=== PATIENT | male | born 1975 | race Caucasian/White ===

== ENCOUNTER 2019-08-01 14:27 | Emergency (ER) | payer OTHER, SELFPAY ==
--- NOTE | ~2019-08-01 | XR_ITS ---
EXAMINATION: XR chest 2V DATE: 08/01/2019 15:14 INDICATION: Heart palpitations for a week TECHNIQUE: PA and lateral views of the chest are obtained. COMPARISON: None available FINDINGS: The lungs are free of acute opacities. There is no pleural effusion or pneumothorax. The ca rdiomediastinal silhouette is normal. Mild anterior wedging of multiple thoracic vertebral bodies is likely physiologic. IMPRESSION: 1. No acute cardiopulmonary abnormality. Reviewed, dictated and finalized at location A. OUT WAITER/WAITRESS
--- NOTE | 2019-08-01 14:36 | ECG_ITS ---
Measurements Intervals Gate Rate: 82 P: 11 CT: 167 QRS: 25 QRSD: 104 T: 6 QT: 337 QTc: 394 Interpretive Statements SINUS RHYTHM MINIMAL Q WAVES- INF/LAT LEADS BORDERLINE T WAVE ABNORMALITY- INFERIOR LEADS BORDERLINE ECG Electronically Signed On 08-01-2019 15:12:33 EPIC ANESTHESIA ANALYST by Bang Bryant D.O.
--- NOTE | 2019-08-01 14:42 | ED.ARRPALP ---
HPI - Arrhythmia/Palpitations General Chief Complaint: Arrhythmia/Palpitations Stated Complaint: Heart palpitations Time Seen by Provider: 08/01/19 14:29 Source: patient and RN notes reviewed Mode of arrival: ambulatory Limitations: no limitations History of Present Illness HPI narrative: Pt is a 43 y/o male who presents to the ED with c/o intermittent palpitations starting 1 week ago. He notes that he has had roughly 50-60 episodes of palpitations per day for the past week, stating that each episode lasts for several seconds. Pt notes that his heart feels like it is skipping beats. He states that he has been scheduled to be placed on a Holter monitor for his symptoms. Pt reports discomfort in the lt side of his chest and SOB as of earlier today. He also reports feeling more weak and fatigued than normal while lifting earlier today. Pt states that he has had lt middle back pain ever since working out. MD complaint: skipped beats Onset (ago): week(s) (1) Duration: intermittent Associated symptoms: shortness of breath and other (discomfort in lt chest; fatigue; lt middle back pain; weakness) Related Data Home Medications Medication Instructions Recorded Confirmed esomeprazole magnesium 20 mg 20 mg PO .before meals cap 05/04/19 capsule,delayed release pravastatin 20 mg tablet 20 mg PO DAILY 05/04/19 Review of Systems Review of Systems: All systems reviewed & are unremarkable except as noted in HPI and below Constitutional: Constitutional: Reports fatigue and Reports weakness Cardiovascular: Cardiovascular: Reports palpitations and Reports other (discomfort in lt chest) Respiratory: Respiratory: Reports dyspnea Musculoskeletal: Musculoskeletal: Reports back pain (lt middle back pain) [facility] Past Medical History Medical History Congenital pes planus Hallux valgus (acquired), left foot Mixed hyperlipidemia Prediabetes Prehypertension Surgical History Surgical History No significant past surgical history Social History Social History Smoking status: Never smoker Alcohol intake: current Gender identity (if verbalized by the patient): Male Exam Narrative: Exam Narrative: APPEARANCE: No acute distress, nontoxic, resting in bed EYES: EOMI HEENT: Normocephalic, atraumatic, OMM RESPIRATORY: No respiratory distress Clear to auscultation bilaterally with no rhonchi wheezing or rales. CARDIOVASCULAR: Regular rate and rhythm without murmurs rubs or gallops. ABDOMINAL: Soft, nontender, nondistended, no rebound or guarding MUSCULOSKELETAl: Moves all extremities. No clubbing, cyanosis or edema. NEURO: Awake and alert. Following commands, speech normal, no focal deficits SKIN:: Warm, dry. No rashes lesions or abrasions PSYCHIATRIC: Normal affect/mood, Course Course Emergency Course: Patient's schedule be sent for Holter monitor in 2 days by his primary care physician Patient remained on diagnostic cardiac sonographer throughout stay in ED with no arrhythmias noted Discussed with patient results of workup and diagnosis. Discussed need for follow-up with primary care, proper use of medication, and reasons to return to the emergency department. Patient understands and agrees to current treatment plan Vital Signs Vital signs: Vital Signs Temperature 97.6 F 08/01/19 14:43 Pulse Rate 83 08/01/19 14:43 Respiratory Rate 18 08/01/19 14:43 Blood Pressure 131/84 08/01/19 14:43 Pulse Oximetry 96 08/01/19 14:43 Temperature 97.6 F 08/01/19 14:43 Pulse Rate 76 08/01/19 18:35 Respiratory Rate 16 08/01/19 18:35 Blood Pressure 146/93 H 08/01/19 18:35 Pulse Oximetry 99 08/01/19 18:35 MDM - Arrhythmia/Palpitations Lab Data Result diagrams: 08/01/19 14:53 08/01/19 14:53 Labs: Lab Results 08/01/19 08/01/19 08/01/19 Range/Units
[2019-08-01 14:43] VITALS: BP 131/84; BP 134/80; PULSE 83; PULSE 86; RESP 18; RESP 20; TEMP 36.4; O2SAT 96
[2019-08-01 15:08] LABS: Basophils Absolute Auto 0.1 K/mm3 (0.0-0.1); Basophils Percent Auto 0.6 % (0.2-1.2); Eosinophils Absolute Auto 0.2 K/mm3 (0-0.3); Eosinophils Percent Auto 2.8 % (0-4.4); Hematocrit 44.7 % (42.0-52.0); Hemoglobin 14.8 g/dL (14.0-18.0); Immature Granulocyte Absolute 0.01 K/mm3 (0.00-0.031); Immature Granulocyte Percent A 0.1 % (0-0.5); Lymphocytes Absolute Auto 2.52 K/mm3 (0.9-3.2); Lymphocytes Percent Auto 30.8 % (18.3-44.2); Mean Corpuscular HGB Conc 33.1 g/dl (32-36); Mean Corpuscular Hemoglobin 29.9 pg (26-34); Mean Corpuscular Volume 90.3 fl (80-100); Mean Platelet Volume 10.7 fl (7.4-10.4); Monocytes Absolute Auto 0.8 K/mm3 (0.1-0.6); Monocytes Percent Auto 9.8 % (2.6-8.5); Neutrophils Absolute Auto 4.6 K/mm3 (1.3-6.7); Neutrophils Percent Auto 55.9 % (45.5-73.1); Platelet Count Result 271 k/mm3 (150-375); Red Blood Count 4.95 M/mm3 (4.6-6.20); Red Cell Distribution Width 12.5 % (11.5-14.5); White Blood Count 8.2 K/mm3 (4.5-10.0)
[2019-08-01 15:15] LABS: Alanine Aminotransferase 38 U/L (4-50); Albumin Level 4.8 g/dL (3.5-5.1); Alkaline Phosphatase 69 U/L (38-126); Aspartate Amino Transferase 39 U/L (17-59); Bilirubin,Total 0.4 mg/dL (0.2-1.3); Blood Urea Nitrogen 22 mg/dL (9-20); Calcium 9.6 mg/dL (8.4-10.2); Carbon Dioxide 26 mmol/L (22-30); Chloride 101 mmol/L (98-107); Estimated CRCL calculation 81 ml/min; Estimated Glomerular Filt Rate > 60; Glucose 103 mg/dL (75-110); Magnesium 2.1 mg/dL (1.6-2.3); Potassium 3.9 mmol/L (3.4-5.0); Sodium 140 mmol/L (137-145)
[2019-08-01 15:26] LABS: Troponin I < 0.012 ng/mL (0.000-0.034)
[2019-08-01 16:38] VITALS: PULSE 86
[2019-08-01 18:04] LABS: Troponin I < 0.012 ng/mL (0.000-0.034)
[2019-08-01 18:35] VITALS: BP 146/93; PULSE 76; RESP 16; O2SAT 99
== END 2019-08-01 18:37 | disposition home or self-care (01) ==
PROVIDERS: Emergency Provider Emergency Medicine; PCP Family Medicine
DX: E78.2 Mixed hyperlipidemia (principal); R94.31 Abnormal electrocardiogram [ECG] [EKG]
CPT/HCPCS: 36415; 71046; 80053; 83735; 84443; 84484; 85025; 93005; 99284

== ENCOUNTER 2019-08-03 08:14 | Outpatient (CLI) | payer OTHER, SELFPAY ==
--- NOTE | 2019-08-09 12:28 | WPDHOLTEREM ---
Holter/Event Monitor Holter/Event Monitor Date of procedure: 08/03/19 Procedure Type: 24 hour holter monitor Indications: Palpitations Conclusion: 1. 24 hour holter monitor on 08/03/19. 2. Underlying rhythm is sinus rhythm. HR range 55-114 bpm; average HR 75 bpm. 3. There are 7 premature supraventricular complexes and 1 supraventricular triplet. No supraventricular tachycardia. 4. There are 334 premature ventricular complexes. No ventricular tachycardia. 5. No sinoatrial or atrioventricular blocks. No significant pauses greater than 2 seconds. 6. Patient reports symptoms of beating fast which demonstrate sinus rhythm, HR range 71-80 and one PVC.
== END 2019-08-03 08:15 | disposition home or self-care (01) ==
PROVIDERS: PCP Family Medicine; Visit Provider Physician Assistant
DX: I49.3 Ventricular premature depolarization (principal); R00.2 Palpitations
CPT/HCPCS: 93225; 93226

== ENCOUNTER → 2020-01-01 10:23 | Outpatient (CLI) | payer OTHER, SELFPAY ==
--- NOTE | ~2020-01-01 | XR_ITS ---
XR chest 2V DATE: 01/01/2020 10:52 INDICATION: Shortness of breath TECHNIQUE: PA and lateral views COMPARISON: None FINDINGS: Normal heart size. No hilar or mediastinal enlargement. No pulmonary infiltrate or consol idation, pulmonary vascular congestion or pleural effusion. IMPRESSION: No active cardiopulmonary disease Reviewed, dictated and finalized at location A.
== END ==
PROVIDERS: Visit Provider Family Medicine
DX: R06.02 Shortness of breath (principal)
CPT/HCPCS: 71046

== ENCOUNTER → 2020-12-28 00:32 | Outpatient (CLI) | payer OTHER, SELFPAY ==
[2020-12-28 21:19] LABS: SARS-CoV-2 RNA PCR Negative
== END ==
PROVIDERS: PCP Family Medicine; Visit Provider Internal Medicine Gastroenterology
DX: Z01.812 Encounter for preprocedural laboratory examination (principal); Z20.822 Contact with and (suspected) exposure to COVID-19
CPT/HCPCS: 88305; C9803; J2001; J2704; J7120; U0003; U0005

== ENCOUNTER 2020-12-31 02:33 | Day surgery (SDC) | payer OTHER, SELFPAY ==
[2020-12-16 12:35] VITALS: BMI 34.0
--- NOTE | 2020-12-30 14:27 | WPDANESEPPF ---
Anes - Initial Pre Proc Eval Procedure: Operation Date: 12/31/20 07:30 Proposed Procedures p Esophagogastroduodenoscopy - Terell Horton MD Date/Time: 12/30/20 14:27 Surgeon: Terell Horton MD Pre Op Diagnosis: GERD Patient Data Age: 45 Gender: M Height: 1.75 m Weight: 104.6 kg Allergies Allergy/AdvReac Type Severity Reaction Status Date / Time No Known Allergies Allergy Verified 12/31/20 06:23 Home Medications Medication Instructions Recorded Confirmed Type pravastatin 20 mg tablet 20 mg PO DAILY #30 tablet 07/15/20 12/16/20 Rx omeprazole 20 mg PO BID 12/16/20 12/16/20 History Patient hx anesthesia problems: none Family hx anesthesia problems: none [facility] Past Medical History Medical History (Updated 12/30/20 @ 14:27 by Adebayo Nicholas DO) Colon cancer screening Congenital pes planus GERD (gastroesophageal reflux disease) Hallux valgus (acquired), left foot Mixed hyperlipidemia Prediabetes Prehypertension Surgical History Surgical History No significant past surgical history Family History Family History Father Family history of hypercholesterolemia Hypertension Mother Family history of hypercholesterolemia Asthma Social History Social History (Updated 10/17/20 @ 09:44 by Teri Milner CMA) Smoking status: Never smoker Alcohol intake: current Alcohol use details: 5 MONTHLY Substance use: never Substance use type: does not use Living arrangements: with family Gender identity (if verbalized by the patient): Male Spiritual care concerns: No Anes - Eval Final PreProcedure Day of Procedure 12/30/20 14:27 Patient weight: obese Heart: regular rate and rhythm Lungs: clear to auscultation and normal air movement Airway: Mallampati scale class II Neurological: alert and oriented Last oral intake: >/= 8 hours ASA classification: II Emergent: no Anesthetic plan: proceed Anesthesia type and monitoring: general GIVS and standard monitoring Informed Consent: The patient's anesthetic plan and its attendant risks and benefits were discussed with the patient/family/POA. Questions were solicited and answers provided to the satisfaction of the patient/family/POA.
[2020-12-31 06:24] VITALS: BP 140/82; PULSE 78; RESP 20; TEMP 35.6; O2SAT 99
[2020-12-31] MEDS: LACTATED RINGERS 1,000 ML 150 ML IV CONT (06:27)
--- NOTE | 2020-12-31 07:31 | PM.HPGS ---
History of Present Illness History of Present Illness Consent: Risks, benefits, and alternatives have been discussed and questions answered. Patient agrees to proceed with procedure. Chief complaint: GERD Narrative: Blaise Ayoub is a 45 year old male with gerd on ppi but never had egd Review of Systems Constitutional: Constitutional: Denies headache(s) and Denies weakness Eyes: Eyes: Denies blurry vision ENT: Reports Normal hearing present, Denies headache(s) and Denies neck pain Cardiovascular: Cardiovascular: Denies chest pain and Denies dyspnea Respiratory: Respiratory: Denies dyspnea Gastrointestinal: Gastrointestinal: Reports no additional gastrointestinal complaints Genitourinary: Genitourinary: Denies dysuria Musculoskeletal: Musculoskeletal: Denies neck pain Integumentary/Breasts: Skin/Breast: Denies dry skin Neurologic: Reports Normal hearing present, Denies headache(s) and Denies weakness Psychiatric: Psychiatric: Denies anxiety Endocrine: Endocrine: Denies change in body appearance Hematologic/Lymphatic: Hematologic/Lymphatic: Denies easy bleeding Allergic/Immunologic: Allergic/Immunologic: Denies urticaria PMFSH Past Medical History Medical History (Updated 12/30/20 @ 14:27 by Adebayo Nicholas DO) Colon cancer screening Congenital pes planus GERD (gastroesophageal reflux disease) Hallux valgus (acquired), left foot Mixed hyperlipidemia Prediabetes Prehypertension Surgical History Surgical History No significant past surgical history Family History Family History Father Family history of hypercholesterolemia Hypertension Mother Family history of hypercholesterolemia Asthma Social History Social History (Updated 10/17/20 @ 09:44 by Teri Milner CMA) Smoking status: Never smoker Alcohol intake: current Alcohol use details: 5 MONTHLY Substance use: never Substance use type: does not use Living arrangements: with family Gender identity (if verbalized by the patient): Male Spiritual care concerns: No Meds Home Medications and Allergies Home Medications Medication Instructions Recorded Confirmed Type pravastatin 20 mg tablet 20 mg PO DAILY #30 tablet 07/15/20 12/16/20 Rx omeprazole 20 mg PO BID 12/16/20 12/16/20 History Allergies Allergy/AdvReac Type Severity Reaction Status Date / Time No Known Allergies Allergy Verified 12/31/20 06:23 Vital Signs Vital Signs - 24 hr 12/31/20 06:24 Temperature 96.1 F L Pulse Rate 78 Respiratory Rate 20 Blood Pressure 140/82 Pulse Oximetry 99 Exam Const: General: comfortable and no acute distress HENMT: General nose exam: Normal nares present Eyes: General: appearance normal, both eyes and all related structures Neck: Neck: no JVD Resp: Auscultation: clear to auscultation bilaterally Cardio: Rate: regular rate Rhythm: regular rhythm GI: Inspection: non-distended GI Palp: Yes Soft to palpation Skin: General skin exam: normal color Neuro: General: gait normal Speech: normal speech Extrem: General: normal to inspection Psych: Mental Status: mental status grossly normal Assessment and Plan Assessment and plan (1) GERD (gastroesophageal reflux disease): Code(s): K21.9 - Gastro-esophageal reflux disease without esophagitis Status: Acute Assessment and Plan: egd with bx, already on ppi
[2020-12-31] MEDS: BENZOCAINE (*SP) 60 ML SPRAY CAN (HURRICAINE) 1 SPRAY MUCOUS MEM (07:35)
[2020-12-31 07:49] VITALS: BP 97/50; PULSE 87; RESP 17; O2SAT 92
[2020-12-31 07:59] VITALS: BP 107/58; PULSE 80; RESP 15; O2SAT 98
[2020-12-31 08:09] VITALS: BP 105/65; PULSE 77; RESP 17; O2SAT 97
== END 2020-12-31 08:26 | disposition home or self-care (01) ==
PROVIDERS: PCP Family Medicine; Visit Provider Internal Medicine Gastroenterology
PROC: 0DJ08ZZ Inspection of Upper Intestinal Tract, Via Natural or Artificial Opening Endoscopic (ICD-10-PCS; CPT 43235; principal; 2020-12-31 07:30)
DX: K21.9 Gastro-esophageal reflux disease without esophagitis (principal); K44.9 Diaphragmatic hernia without obstruction or gangrene; E78.2 Mixed hyperlipidemia; R73.03 Prediabetes; E66.9 Obesity, unspecified; Z68.35 Body mass index [BMI] 35.0-35.9, adult
CPT/HCPCS: 43239; 88305; C9803; J2001; J2704; J7120; U0003; U0005

== ENCOUNTER 2021-02-11 09:25 | Emergency (ER) | payer OTHER, SELFPAY ==
--- NOTE | ~2021-02-11 | XR_ITS ---
EXAMINATION: XR ankle LT min 3V DATE: 02/11/2021 09:48 INDICATION: Left ankle pain and swelling. TECHNIQUE: 4 views of left ankle were obtained. COMPARISON: None. FINDINGS: Bone alignment is normal. No fracture. There is heterotopic ossification distal to medial m alleolus, likely from old injury. Joint spaces are normal. There are enthesophytes at the posterior a nd plantar aspects of calcaneal tuberosity. Ankle soft tissue swelling is noted. IMPRESSION: 1. No acute fracture. Reviewed, dictated and finalized at location A. IMPRESSION: 1. No acute fracture.
--- NOTE | 2021-02-11 09:28 | ED.LOWEXIN ---
HPI - Extremity Injury (Lower) General Chief Complaint: Extremity Injury, Lower Stated Complaint: left ankle pain Time Seen by Provider: 02/11/21 09:28 Source: patient and RN notes reviewed History of Present Illness HPI Narrative: Patient is a 45-year-old male who presents the urgent care with complaints of left ankle pain. Patient states that started yesterday and he did his normal activity, including walking his dogs for 3 miles. Patient states that it was very painful last night even just for the sheet to catch the ankle. Patient denies of any known trauma or injury. States that he has been taking ibuprofen for the pain. Notes an increase of pain this morning. Patient denies of any history of gout but states his father started having gout flares in his 40s. Denies of any recent change in his diet with the exception of some increase in alcohol intake. No other acute complaints. No acute distress noted. Patient under the plan of care. Some parts of this dictation were generated by voice recognition software and may contain typographical and/or grammatical inaccuracies. Related Data Home Medications Medication Instructions Recorded Confirmed omeprazole 20 mg PO BID 12/16/20 02/11/21 Allergies Allergy/AdvReac Type Severity Reaction Status Date / Time No Known Allergies Allergy Verified 02/11/21 09:41 Review of Systems Review of Systems: CONSTITUTIONAL: Denies fever, chills, or sweats. EYES: Denies visual changes, redness, or discharge. ENT: Denies rhinorrhea, congestion, sore throat, or otalgia. CARDIOVASCULAR: Denies chest pain, palpitations, or edema. RESPIRATORY: Denies cough or dyspnea. GASTROINTESTINAL: Denies abdominal pain, nausea, vomiting, or diarrhea. GENITOURINARY: Denies dysuria or hematuria. SKIN: Denies rash or itching. MUSCULOSKELETAL: Reports of left ankle pain and tenderness NEUROLOGIC: Denies headache, numbness, or weakness. All other systems reviewed are negative, except as documented in HPI. [facility] Past Medical History Medical History Colon cancer screening Congenital pes planus GERD (gastroesophageal reflux disease) Hallux valgus (acquired), left foot Mixed hyperlipidemia Prediabetes Prehypertension Surgical History Surgical History No significant past surgical history Family History Family History Father Family history of hypercholesterolemia Hypertension Mother Family history of hypercholesterolemia Asthma Social History Social History Alcohol intake: current Alcohol use details: 5 MONTHLY Substance use: never Substance use type: does not use Gender identity (if verbalized by the patient): Male Spiritual care concerns: No Comments At the time of my signature, I reviewed and agree with the nursing past medical, surgical, social, and family history. There is no relevant family history pertinent to the patient complaint. Exam Narrative: GENERAL: This is a well-nourished, well-developed patient, in no apparent distress. HEAD: normocephalic, atraumatic. EYES: PERRL. Sclera clear/white. Vision is grossly intact. EARS: External ears normal NOSE: External nose normal with no obvious nasal discharge, nares without redness, no rhinorrhea. THROAT: Mucous membranes moist NECK: Neck supple CARDIOVASCULAR: Regular rate and rhythm without murmurs, gallops, or rubs. RESPIRATORY: Clear to auscultation. Breath sounds equal bilaterally. No wheezes, rales, or rhonchi. SKIN: warm, intact with no suspicious lesions or rash, good texture and turgor. NEURO: awake, alert, and oriented to person, place and time. There were no obvious focal neurologic abnormalities. EXTREMITIES: Mild to moderate edema and erythema noted to the lateral left malleolus with moderate anteri
[2021-02-11 09:31] VITALS: BP 125/82; PULSE 70; RESP 20; TEMP 36.7; O2SAT 99
== END 2021-02-11 10:20 | disposition home or self-care (01) ==
PROVIDERS: Emergency Provider Nurse Practitioner Family; PCP Family Medicine
DX: M10.9 Gout, unspecified (principal); K21.9 Gastro-esophageal reflux disease without esophagitis; E78.5 Hyperlipidemia, unspecified; R73.03 Prediabetes; R03.0 Elevated blood-pressure reading, without diagnosis of hypertension
CPT/HCPCS: 73610; 99213; G0463

== ENCOUNTER 2021-07-05 11:17 | Emergency (ER) | payer OTHER, SELFPAY ==
[2021-07-05 11:24] VITALS: BP 144/84; PULSE 74; RESP 16; TEMP 36.2; O2SAT 99
--- NOTE | 2021-07-05 11:42 | ED.GENADULT ---
HPI - General Adult General Chief complaint: Upper Respiratory Infection Stated complaint: headache/earache/neck pain/lymph node pain Source: patient Mode of arrival: ambulatory Limitations: no limitations History of Present Illness HPI narrative: Patient presents for evaluation of sinus symptoms. He reports right frontal sinus pressure with right retro-orbital pressure for the past two weeks. He has noted a popping sensation in the right ear and also some right cervical lymphadenopathy. He has also experienced photophobia and phonophobia. He has had sinusitis in the past and this feels similar. No fever, chills, nausea, vomiting, sore throat or respiratory symptoms. He does not have a history of headaches. He states the pressure he is experiencing occurs multiple times per day, frequently to count, lasting 15 seconds in duration. No recent sick contacts. He does not smoke. No additional complaints or concerns. Related Data Allergies Allergy/AdvReac Type Severity Reaction Status Date / Time No Known Allergies Allergy Verified 05/20/21 10:09 Review of Systems Review of Systems: CONSTITUTIONAL: Denies fever, chills, or sweats. EYES: Reports right retro-orbital pressure with associated photophobia. Denies visual changes, redness, or discharge. ENT: Reports right frontal sinus pressure. Reports right cervical lymphadenopathy. Denies rhinorrhea, congestion, sore throat, or otalgia. CARDIOVASCULAR: Denies chest pain, palpitations, or edema. RESPIRATORY: Denies cough or dyspnea. GASTROINTESTINAL: Denies abdominal pain, nausea, vomiting, or diarrhea. GENITOURINARY: Denies dysuria or hematuria. SKIN: Denies rash or itching. MUSCULOSKELETAL: Denies back pain, joint pain, or myalgia. NEUROLOGIC: Reports headache. Denies numbness, dizziness, or weakness. PSYCHIATRIC: Denies anxiety or depression. [facility] Past Medical History Medical History Colon cancer screening Congenital pes planus GERD (gastroesophageal reflux disease) Hallux valgus (acquired), left foot Mixed hyperlipidemia Prediabetes Prehypertension Surgical History Surgical History No significant past surgical history Family History Family History Father Family history of hypercholesterolemia Hypertension Mother Family history of hypercholesterolemia Asthma Social History Social History Alcohol intake: current Alcohol use details: 5 MONTHLY Substance use: never Substance use type: does not use Gender identity (if verbalized by the patient): Male Spiritual care concerns: No Exam Narrative: GENERAL: Well-appearing, well-nourished, and in no acute distress. HEAD: Normocephalic, atraumatic. EYES: PERRLA and EOMI. ENT: Nares clear, no rhinorrhea or epistaxis. Mucous membranes moist. Oropharynx without tonsillar hypertrophy exudate or other lesions. Bilateral TMs pearly lerma nonbulging NECK: Supple. No adenopathy or masses. No carotid bruits or JVD CHEST: Clear to auscultation. No respiratory distress. No wheezes rales or rhonchi HEART: Regular rate and rhythm. No murmur heard. Normal peripheral pulses. ABDOMEN: Soft, nontender, nondistended, normal active bowel sounds. EXTREMITIES: Normal range of motion. No edema. SKIN: Warm, dry, no rash. NEURO: No focal deficits. Alert and oriented x3. PSYCH: Normal mood and affect. Course Course Emergency Course: This is a 45-year-old male who presented complaints of right frontal sinus pressure, popping in the right ear, and right cervical lymphadenopathy. He has a history of sinusitis and states his current symptoms are similar to that. He does not have a history of headache so advised to go to the ER for CT scan which he declined. He would like to be treated f
== END 2021-07-05 11:55 | disposition home or self-care (01) ==
PROVIDERS: Emergency Provider Nurse Practitioner; PCP Family Medicine
DX: J00 Acute nasopharyngitis [common cold] (principal); J01.90 Acute sinusitis, unspecified; K21.9 Gastro-esophageal reflux disease without esophagitis; E78.2 Mixed hyperlipidemia; R73.03 Prediabetes; R03.0 Elevated blood-pressure reading, without diagnosis of hypertension; Q66.89 Other specified congenital deformities of feet
CPT/HCPCS: 99213; G0463

== ENCOUNTER 2021-07-20 09:58 | Emergency (ER) | payer OTHER, SELFPAY ==
[2021-07-20 10:02] VITALS: BP 135/70; PULSE 77; RESP 20; TEMP 36.4; O2SAT 98
--- NOTE | 2021-07-20 10:06 | ED.SKABFB ---
HPI - Skin/Abscess/Foreign Bdy General Chief complaint: Skin/Abscess/Foreign Body Stated complaint: Skin Problem Time Seen by Provider: 07/20/21 10:12 Source: patient and RN notes reviewed Mode of arrival: ambulatory Limitations: no limitations History of Present Illness HPI narrative: 45 female presents concern for sloughing of the skin to the third digit of the right hand, reports the digit is itchy as well. Reports the second and fourth digits are also itchy but without sloughing. He denies any injury, trauma, exposure to chemicals, change in personal care products. He reports he took antibiotics in the middle of June for a sinus infection. He denies any other rash, itching, MD complaint: rash Related Data Allergies Allergy/AdvReac Type Severity Reaction Status Date / Time No Known Allergies Allergy Verified 07/20/21 10:11 Review of Systems Review of Systems: CONSTITUTIONAL: Denies malaise, chills, sweats, or fever. EYES: Denies redness, or discharge. ENT: Denies rhinorrhea, congestion, swollen lips, swollen tongue CARDIOVASCULAR: Denies chest pain, palpitations, or edema. RESPIRATORY: Denies cough or dyspnea. GASTROINTESTINAL: Denies abdominal pain, nausea, vomiting SKIN: Reports itching skin on digits 2 3 and 4 of the right hand, skin sloughing on the third digit MUSCULOSKELETAL: Denies joint pain or myalgia. NEUROLOGIC: Denies headache. All systems reviewed & are unremarkable except as noted in HPI and below PMFSH Past Medical History Medical History Colon cancer screening Congenital pes planus GERD (gastroesophageal reflux disease) Hallux valgus (acquired), left foot Mixed hyperlipidemia Prediabetes Prehypertension Surgical History Surgical History No significant past surgical history Family History Family History Father Family history of hypercholesterolemia Hypertension Mother Family history of hypercholesterolemia Asthma Social History Social History Alcohol intake: current Alcohol use details: 5 MONTHLY Substance use: never Substance use type: does not use Gender identity (if verbalized by the patient): Male Spiritual care concerns: No Comments At time of signature, agree with nursing past medical, surgical, social and family history. There is no relevant family history pertinent to the presenting complaint Exam Narrative: GENERAL: Well-appearing, well-nourished, and in no acute distress. HEAD: Normocephalic, atraumatic. EYES: PERRLA, conjunctivae clear, and EOMI. ENT: Mucous membranes moist. Oropharynx without edema, erythema or lesions. NECK: Supple. No lymphadenopathy CHEST: Clear to auscultation. No respiratory distress. HEART: Regular rate and rhythm. SKIN: Warm, dry. Skin sloughing noted to the third digit of the right hand, [place] lamp exam indicates possible tinea infection NEURO: Alert and oriented x3. PSYCH: Normal mood and affect Course Course Emergency Course: Patient is aware of diagnosis, understands and agrees to treatment plan. Anticipatory guidance given. Patient agrees to follow-up as directed and is aware of reasons to seek care at the emergency department. Portions of this record may have been created with voice recognition software Level of Care: Express Care Visit Vital Signs Vital signs: Reviewed. MDM - Skin/Abscess/Foreign Bdy MDM Narrative Medical decision making narrative: Does not appear at this time to be erythema multiforme, bullous, SJS, TEN; no evidence at this time to suggest RMSF, endocarditis or Lyme disease; patient looks well, nontoxic and is tolerating oral intake; no neurologic signs or symptoms; no headache, photophobia or neck pain; afebrile; appropriate for initial outpatient treatment; d
[2021-07-20 10:12] VITALS: BP 135/70; PULSE 77; RESP 20; TEMP 36.4; O2SAT 98
== END 2021-07-20 10:25 | disposition home or self-care (01) ==
PROVIDERS: Emergency Provider Nurse Practitioner; PCP Family Medicine
DX: B35.2 Tinea manuum (principal); K21.9 Gastro-esophageal reflux disease without esophagitis; E78.2 Mixed hyperlipidemia; R73.03 Prediabetes; R03.0 Elevated blood-pressure reading, without diagnosis of hypertension; M21.40 Flat foot [pes planus] (acquired), unspecified foot
CPT/HCPCS: 99213; G0463

== ENCOUNTER → 2022-04-24 15:15 | Outpatient (CLI) | payer OTHER, SELFPAY ==
--- NOTE | ~2022-04-24 | XR_ITS ---
XR knee RT min 4V DATE: 04/24/2022 18:11 INDICATION: Right knee and upper tibial pain TECHNIQUE: 4 views COMPARISON: None FINDINGS: There is mild periarticular spurring of the patellofemoral compartment consistent with mild osteophytosis. Knee joint spaces are well preserved. No fracture or dislocation or joint effusion. No radiopaque intra-articular loose body or chondrocalc inosis. Superior pole patellar enthesopathy at quadriceps tendon insertion. IMPRESSION: Mild patellofemoral compartment osteoarthritis Reviewed, dictated and finalized at location A.
== END ==
PROVIDERS: PCP Family Medicine; Visit Provider Family Medicine
DX: M17.11 Unilateral primary osteoarthritis, right knee (principal)
CPT/HCPCS: 73564

== ENCOUNTER → 2022-05-28 07:49 | Outpatient (CLI) | payer OTHER, SELFPAY ==
--- NOTE | ~2022-05-28 | MR_ITS ---
EXAMINATION: MR knee RT wo con DATE: 05/28/2022 08:20 INDICATION: Right knee pain TECHNIQUE: Magnetic resonance imaging (MRI) of the right knee was performed without intravenous contr ast. Sequences included coronal PD-weighted FSE, coronal PD-weighted FS FSE, sagittal T2-weighted FS E, sagittal PD-weighted FS FSE and axial PD weighted fat saturated FSE. COMPARISON: None. FINDINGS: Medial compartment: Medial meniscus is normal. Articular cartilage is normal. Lateral compartment: Lateral meniscus is normal. Articular cartilage is normal. Patellofemoral compartment: Deep chondral ulceration with at the patellar apical ridge and cephalad aspect of the lateral facet, the latter with mild underlying cortical irregularity and subarticular cystlike change. Deep fissurin g at the more caudal lateral facet. Shallow chondral surface irregularity caudal aspect of the trochl ear groove. Ligaments and tendons: Anterior and posterior cruciate ligaments are normal. The medial collateral ligament and fibular lashay ateral ligament complex are normal. Small enthesophyte and mild tendinopathy at the lateral side of t he patellar insertion of the distal quadriceps tendon. There is overlying mild prepatellar edema with out a discrete prepatellar bursal fluid collection. The visualized medial and lateral hamstring tendo ns as well as the iliotibial band are normal. Fluid: Physiologic amount of fluid in the joint space. No loose osteochondral bodies identified. Osseous/other: Normal marrow signal aside from the previous noted degenerative subarticular changes at the patella. No fracture or pathologic marrow replacing process. IMPRESSION: 1. 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 2. Mild tendinopathy/enthesopathy at the lateral distal quadriceps tendon with mild overlying prepate llar edema. 3. Normal stabilizing ligaments and normal menisci and cartilage in the medial lateral compartments Reviewed, dictated and finalized at location A. TH DATA ANALYST IMPRESSION: 1. Mild patellofemoral osteoarthritis with high-grade chondral malacia along th e lateral patellar facet. 2. Mild tendinopathy/enthesopathy at the lateral distal quadriceps tendon with mild overlying prepatellar edema. 3. Normal stabilizing ligaments and normal menisci and cartilage in the medial lateral compartments
== END ==
PROVIDERS: PCP Family Medicine; Visit Provider Nurse Practitioner
DX: M25.561 Pain in right knee (principal); M17.11 Unilateral primary osteoarthritis, right knee; M76.51 Patellar tendinitis, right knee
CPT/HCPCS: 73721

== ENCOUNTER → 2022-08-25 08:30 | Outpatient (CLI) | payer OTHER, SELFPAY ==
--- NOTE | ~2022-08-25 | CT_ITS ---
EXAMINATION: CT abdomen wo con DATE: 08/25/2022 08:45 INDICATION: Unspecified abdominal pain. TECHNIQUE: Computed tomography (CT) of the abdomen was performed without intravenous contrast. Automa nyla exposure control and iterative reconstruction technique were employed. The dose-length product wa s 751.35 mGy-cm. COMPARISON: None. FINDINGS: The visualized portions of the lung bases are clear without pneumonia or pleural effusion. The heart size is normal. No pericardial effusion. There is a small sliding hiatal hernia. There is d iffuse hepatic steatosis. The gallbladder, spleen, pancreas, adrenal glands, and kidneys are normal. There are no dilated loops of bowel. There is an umbilical hernia containing fat. The appendix is nor mal. There is fat stranding at the root of the small bowel mesentery. There are no pathologically enl arged lymph nodes. There is no free intraperitoneal fluid. There is mild chronic anterior wedging of multiple thoracic vertebral bodies. There is moderate thoracic spondylosis and mild lumbar spondylosi s. IMPRESSION: 1. Umbilical hernia containing fat. 2. Small sliding hiatal hernia. 3. Fat stranding at the root of the small bowel mesentery which may be edema or inflammation (mesente ainsley panniculitis). 4. Diffuse hepatic steatosis. Reviewed, dictated and finalized at location A. B2B SALES EXECUTIVE IMPRESSION: 1. Umbilical hernia containing fat. 2. Small sliding hiatal hernia. 3. Fat stranding at the root of the small bowel mesentery which may be edema or inflammation (mesenteric panniculitis). 4. Diffuse hepatic steatosis.
== END ==
PROVIDERS: PCP Family Medicine; Visit Provider Family Medicine
DX: R10.9 Unspecified abdominal pain (principal); K44.9 Diaphragmatic hernia without obstruction or gangrene; K76.0 Fatty (change of) liver, not elsewhere classified
CPT/HCPCS: 74150

== ENCOUNTER → 2023-06-09 14:22 | Outpatient (CLI) | payer OTHER, SELFPAY ==
--- NOTE | ~2023-06-09 | XR_ITS ---
EXAMINATION: XR shoulder RT min 2V DATE: 06/09/2023 14:46 INDICATION: Chronic right shoulder pain. TECHNIQUE: 5 views of right shoulder were obtained. COMPARISON: None. FINDINGS: Bone alignment is normal. No fracture. There is advanced osteoarthritis of glenohumeral shivani nt and mild osteoarthritis of acromioclavicular joint. IMPRESSION: 1. Advanced osteoarthritis of right glenohumeral joint. Reviewed, dictated and finalized at location E. STYRENE MOLDING MACHINE TENDER
--- NOTE | ~2023-06-09 | XR_ITS ---
EXAMINATION: XR shoulder LT min 2V DATE: 06/09/2023 14:46 INDICATION: Chronic left shoulder pain. TECHNIQUE: 4 views of left shoulder were obtained. COMPARISON: None. FINDINGS: Bone alignment is normal. No fracture. There is advanced glenohumeral joint osteoarthritis including glenoid bone volume loss. The acromioclavicular joint is normal. IMPRESSION: 1. Advanced left glenohumeral joint osteoarthritis. Reviewed, dictated and finalized at location E. AL SCIENCE MANAGER
== END ==
PROVIDERS: PCP Nurse Practitioner; Visit Provider Nurse Practitioner
DX: M19.011 Primary osteoarthritis, right shoulder (principal); M19.012 Primary osteoarthritis, left shoulder
CPT/HCPCS: 73030

== ENCOUNTER 2024-10-18 10:53 | Emergency (ER) | payer OTHER, SELFPAY ==
--- NOTE | 2024-10-18 10:55 | ED.URI ---
HPI - URI/Sore Throat General Chief Complaint: Upper Respiratory Infection Stated Complaint: Sore Throat/Body Aches/Chest Congestion Time Seen by Provider: 10/18/24 10:54 Source: patient Mode of arrival: ambulatory Limitations: no limitations History of Present Illness HPI Narrative: Attila is a 48-year-old male patient presenting to the clinic today complaints of sore throat, body aches, productive cough with yellow phlegm, and chest congestion x3 days. He reports no fever or chills but does have some body aches. Denies any chest pain or shortness of breath. Has been taking DayQuil/NyQuil without relief. Related Data Allergies Allergy/AdvReac Type Severity Reaction Status Date / Time No Known Allergies Allergy Verified 10/18/24 11:04 Review of Systems Review of Systems: Pertinent positives per HPI. Patient denies any fever, chills, rash, headache, visual changes, dizziness, shortness of breath, chest pain, palpitations, nausea, vomiting, diarrhea, constipation, abdominal pain, or any urinary issues. [facility] Past Medical History Medical History Umbilical hernia Skin tag of perianal region Colon cancer screening GERD (gastroesophageal reflux disease) Congenital pes planus Hallux valgus (acquired), left foot Mixed hyperlipidemia Prediabetes Prehypertension Surgical History Surgical History No significant past surgical history Family History Family History Father Family history of hypercholesterolemia Hypertension Mother Family history of hypercholesterolemia Asthma Social History Social History Smoking status: Never smoker Alcohol intake: current Alcohol use details: 5 MONTHLY Substance use: never Substance use type: does not use Lack of Transportation: No Lack of Food: Never True Current Housing: I Have Housing Concerned About Future Housing: No Difficulty Paying Gas/Electric Bills: No Difficulty Paying for Meds: No Currently Unemployed: No Education: Bachelor's Degree Difficulty w/ Childcare or Family Care: No Living arrangements: with family Occupation/Education: occupation Gender identity (if verbalized by the patient): Male Spiritual care concerns: No Comments At the time of my signature, I reviewed and agree with the nursing past medical, surgical, social, and family history. There is no relevant family history pertinent to the patient complaint. Exam Narrative: General: Well-developed, well nourished, in no apparent distress Head: Normocephalic, atraumatic Eyes: Pupils equally round and reactive to light bilaterally, EOM intact, sclera and conjunctive clear, no discharge, lids normal Ears: TMs intact and clear, ear canals clear, no drainage, grossly hearing normal. Nose: Nares patent, clear nasal discharge, mild inflammation, no sinus tenderness. Mouth: Oral pharynx without lesions or masses, good dentition, MMM. Postnasal drip Neck: Supple, trachea midline, no enlargement of anterior or posterior cervical nodes, no thyroid masses or goiter palpable. Cardio: Regular rate and rhythm, s1 and s2 normal, no murmur appreciated. Resp: Clear to auscultation bilaterally, no rhonchi, rales, wheezing or rubs Course Course Emergency Course: Portions of this record may have been created with voice recognition software. Level of Care: Express Care Visit Vital Signs Vital signs: Vital Signs Temperature 36.2 C L 10/18/24 10:58 Pulse Rate 87 10/18/24 10:58 Respiratory Rate 16 10/18/24 10:58 Blood Pressure 121/77 10/18/24 10:58 Pulse Oximetry 99 10/18/24 10:58 Oxygen Delivery Room Air 10/18/24 10:58 Temperature 36.2 C L 10/18/24 10:58 Pulse Rate 87 10/18/24 10:58 Respiratory Rate 16 10/18/24 10:58 Blood Pressure 121/77 10/18/24 10:58 Pulse Oximetry 99 10/18/24 10:58 Oxygen Delivery Room Air 10/18/24 10:58 Vital signs reviewed MDM - URI/Sore Throat MDM Narrative Medical decision making narrative: At the time of visit patient is resting comfortably on the exam table. Patient appears to be nontoxic. Labs: Strep test was negative in the clinic today. We will send strep for culture. Declined COVID and influenza testing Plan: I suspect patient has URI/pharyngitis. Prescription for prednisone was sent to the pharmacy. Supportive measures were discussed with the patient and they voiced understanding discharge instructions and agrees to treatment plan. Return precautions reviewed Differential Diagnosis Differential diagnosis: Likely upper respiratory infection, otitis media, sinusitis, viral infection, bronchitis, influenza, pharyngitis and other (COVID) Discharge Plan Discharge Clinical Impression: Upper respiratory infection, Pharyngitis Patient Disposition: Home Condition: Stable Instructions: Antibiotic Form, Pharyngitis (ED), Cold Symptoms (ED) Additional Instructions: You declined COVID and influenza testing today. Strep test was negative in the clinic today. We will send strep for culture. Lung sounds were clear in the clinic today. No sign of bacterial infection. Take prescription medications only as prescribed-prednisone Increase fluids and stay well hydrated Tylenol/motrin for pain/fever Flonase and OTC antihistamines as directed Vicks vapor rub to open sinuses Sinus rinses for congestion Cepacol spray, cough drops, throat lozenges, warm tea with honey/lemon, gargle salt water to soothe throat BRAT diet for diarrhea Clear liquids x 24 hours then advance as tolerated for nausea/vomiting Go to the ED if you develop a worsening in your condition- high fever not controlled by Tylenol or Motrin, dehydration, weakness, lethargy, shortness of breath, or chest pain. Follow up with your PCP in 3-5 days if symptoms persist. Patient Language: Mongolian Prescriptions: New prednisone 20 mg tablet 40 mg PO DAILY 5 Days Qty: 10 0RF Follow-up/Referrals: Rosamaria Diaz DO [Primary Care Provider] - Stand Alone Forms: Work/School Release IP Time of Disposition: 11:19 Quality NIHSS Nursing Documentation ED NIHSS nursing documentation: reviewed/agree
[2024-10-18 10:58] VITALS: BP 121/77; PULSE 87; RESP 16; TEMP 36.2; O2SAT 99
[2024-10-18 11:20] LABS: EDSTREPNEGPOS1 Negative (Negative)
--- OUTSIDE RECORDS SUMMARY | 2024-10-18 12:14 | XMS_ITS | Encounter Summary ---
Author Organization [facility] Address [address] [place] [address] Care Team Providers Care Logistics Administrator Name Role Phone Unavailable Primary Care Provider Unavailabl e Encounter Details Date Type Department Care Team (Late st Contact Info) Description 06/04/2022 Lab Requisition [facility] DermPath Lab [address] [place] [address] Star Fairbanks MD [address] [place], [place] [id number] Social History Tobacco Use Types Packs/Day Years Used Date Smoking Tobacco: Never Assessed Sex and Gender Information Value Date Recorded Sex Assigned at Not on file Legal Sex Male 8:59 AM CDT Gender Identity Not on file Sexual Orientation Not on file documented as of this encounter Plan of Treatment Not on file documented as of this encounter Procedures Procedure Name Priority Date/Time Associated Diagnosis Comments DERMATOPATHOLOGY Routine 06/03/2022 12:0 0 AM ROUTER OPERATOR PIN documented in this encounter Results * DERMATOPATHOLOGY (06/03/2022 12:00 AM ROUTER OPERATOR PIN) Case Report Dermatopathology Report Case: [id number] Authorizing Provider: Star Fairbanks MD Collected: 06/03/2022 12:00 AM Ordering Location: [facility] DermPath Lab Received: 06/04/2022 02:00 PM Pathologist: Zee Godoy MD Specimen: Skin, perianal skin 2 6:06 PM ROUTER OPERATOR PIN DERMATOPATHOLOGY LABORATORY Final Diagnosis Specimen A. 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 Check Margins 2 6:06 PM [facility] DERMATOPATHOLOGY LABORATORY Gross Description Specimen A: Received is one formalin filled container labeled with the patients name and designated perianal skin. The specimen consists of a shave removal measuring [id number] mm. The specimen was Bisected and submitted in Cassettes 1-2. Jar 0. 2 6:06 PM [facility] DERMATOPATHOLOGY LABORATORY Microscopic Description Specimen A. SKIN, perianal skin: There is a gently folded epidermis surrounding a connective tissue core in which fat and collagen are intermingled. This lesion is present at the margin of the specimen. 2 6:06 PM [facility] DERMATOPATHOLOGY LABORATORY Disclaimer An external and internal positive and negative controls are appropriate for the histochemical, immunohistochemical and immunofluorescence stain(s) in this case (if any), except where stated explicitly. The performance characteristics of the stain(s) cited in this report were developed and its performance characteristic determined by the Dermatopathology Laboratory at [facility], directed by Dr. Abelardo Young. These tests need not be, and therefore are not, approved by the [place] Food and Drug Administration. The tests are used for clinical purposes. Billing Codes Specimen Charges Stain Charges 40617 1 2 6:06 PM [facility] DERMATOPATHOLOGY LABORATORY Embedded Images 6:06 PM [facility] DERMATOPATHOLOGY LABORATORY Pathology/Cytolog y TISSUE SPECIMEN FROM SKIN / Unknown 06/03/2022 06/04/2022 2:00 PM ROUTER OPERATOR PIN Star Fairbanks MD LAB - PATHOLOGY/CYTOLOGY ORD ERABLES Final Result DERMATOPATHOLOGY LABORATORY [facility] - Department of Dermatology [address], [address] [phone] documented in this encounter Visit Diagnoses Not on filedocumented in this encounter
--- OUTSIDE RECORDS SUMMARY | 2024-10-18 12:14 | XMS_ITS | Encounter Summary ---
Author Organization [facility] Address [address] [place] [address] Care Team Providers Care Mig Tig Welder Name Role Phone Unavailable Primary Care Provider Unavailabl e Encounter Details Date Type Department Care Team (Late st Contact Info) Description 05/06/2023 Lab Requisition [facility] - DermPath Lab [address] [place] [address] Star Fairbanks MD [address] [place], [place] [id number] Social History Tobacco Use Types Packs/Day Years [...] Priority Date/Time Associated Diagnosis Comments DERMATOPATHOLOGY Routine 05/04/2023 12:0 0 AM QM CONSULTANT documented in this encounter Results * DERMATOPATHOLOGY (05/04/2023 12:00 AM QM CONSULTANT) Case Report Dermatopathology Report Case: [id number] Authorizing Provider: Star Fairbanks MD Collected: 05/04/2023 12:00 AM Ordering Location: [facility] DermPath Lab Received: 05/06/2023 09:16 AM Pathologist: Sydni Godoy MD Specimen: Skin, central left cheek 3 3:16 PM QM CONSULTANT DERMATOPATHOLOGY LABORATORY Final Diagnosis Specimen A. SKIN, central left cheek: EPIDERMOID CYST WITH EVIDENCE OF RUPTURE (L72.0) 3 3:16 PM QM CONSULTANT DERMATOPATHOLOGY LABORATORY Clinical History R/O Cyst Dysplastic Nevus 3:16 PM [facility] [[email or web address]] DERMATOPATHOLOGY LABORATORY Gross Description Specimen A: Received is one formalin filled container labeled with the patient's name and designated central left cheek. The specimen consists of a punch biopsy measuring 5x5x6 mm. Jar 0. 3:16 PM [facility] [[email or web address]] DERMATOPATHOLOGY LABORATORY Microscopic Description Specimen A. SKIN, central left cheek: Within the dermis, there is a space lined by epithelium that resembles normal epidermis and the infundibular portion of the hair follicle. Surrounding this is an infiltrate with neutrophils, histiocytes, and multinucleated giant cells. 3:16 PM [facility] [[email or web address]] DERMATOPATHOLOGY LABORATORY Disclaimer An external and internal positive and negative controls are appropriate for the histochemical, immunohistochemical and immunofluorescence stain(s) in this case (if any), except where stated explicitly. The performance characteristics of the stain(s) cited in this report were developed and its performance characteristic determined by the Dermatopathology Laboratory at [facility], directed by Dr. Abelardo Young. These tests need not be, and therefore are not, approved by the [place] Food and Drug Administration. The tests are used for clinical purposes. Billing Codes Specimen Charges Stain Charges 75655 1 3 3:16 PM [facility] [[email or web address]] DERMATOPATHOLOGY LABORATORY Embedded Images 3 3:16 PM [facility] [[email or web address]] DERMATOPATHOLOGY LABORATORY Pathology/Cytolog y TISSUE SPECIMEN FROM SKIN / Unknown 05/04/2023 05/06/2023 9:16 AM QM CONSULTANT Star Fairbanks MD LAB - PATHOLOGY/CYTOLOGY ORD ERABLES Final Result DERMATOPATHOLOGY LABORATORY [facility] - Department of Dermatology [address] [phone] documented in this encounter Visit Diagnoses Not on filedocumented in this encounter
--- OUTSIDE RECORDS SUMMARY | 2024-10-18 12:14 | XMS_ITS | Clinical Summary ---
Author Organization [facility] Address [address] [place] [address] Care Team Providers Care Door Framer Name Role Phone Unavailable Primary Care Provider Unavailabl e Source Comments [facility],non-owned Affiliates and Associated Physician Practices is amultiple site organization consisting of ambulatory clinics and hospital sitesin [place], [place], [place] and [place]. This disclosure is being madepursuant to the Care Everywhere program and may not contain all information available regarding this patient. Last updated 18.[facility] Social History Tobacco Use Types Packs/Day Years Used Date Smoking Tobacco: Never Assessed Sex and Gender Information Value Date Recorded Sex Assigned at Not on file Legal Sex Male 8:59 AM CDT Gender Identity Not on file Sexual Orientation Not on file Plan of Treatment Health Maintenance Due Date Last Done Comments COLOGUARD (AGES 45-75) - COL ON CA SCREENING 1974 COLON MONITORING 1974 COLONOSCOPY - COLON CA SCREENING 1974 CT COLONOGRAPHY - COLON CA SCREENING 1974 Colorectal Cancer Screening 1974 FIT - COLON CA SCREENING 1974 FLEX SIG - COLON CA SCREENING 1974 LIPID TESTING 1974 HIV SCREENING 1989 HEPATITIS C SCREENING 12/14/1992 DTAP/TDAP/TD VACCINES (1 - Tdap) 1993 HEPATITIS B VACCINE (1 of 3 - 19+ 3-dose series) 1993 COVID-19 VACCINE ( - 2023-2 5 season) 2024 DEPRESSION SCREENING 06/21/2024 ZOSTER VACCINE (1 of 2) 2024 INFLUENZA VACCINE (Season Ended) 2025 HIB VACCINE Aged Out No longer eligi ble based on patient's age to complete this topic HPV VACCINE Aged Out No longer eligi ble based on patient's age to complete this topic MENINGOCOCCAL (Group B) VACC INE SHARED DECISION-MAKING Aged Out No longer eligibl e based on patient's age to complete this topic MENINGOCOCCAL GROUPS A/C/Y/W VACCINE Aged Out No longer eligible b ased on patient's age to complete this topic Insurance [place] [id number] [place] [id number]
--- OUTSIDE RECORDS SUMMARY | 2024-10-18 12:14 | XMS_ITS | Clinical Summary ---
Author Organization [facility] Address [address] [place] [address] Phone Care Team Providers Care Emergency Medical Technician Name Role Phone Rosamaria Diaz DO Primary Care Provider [phone] Allergies No known active allergies Medications pravastatin (PRAVACHOL) 20 mg tablet Take 20 mg by mouth daily. 09/13/2019 Active vit A/vit C/vit E/zinc/copper (PRESERVISION AREDS ORAL) Take by mouth. Active omeprazole (PriLOSEC) 20 mg Capsule, Delayed Release(E.C.) TK 1 C PO BID 05/06/2020 Active Active Problems Patient Care Coordination No te Formatting of this note migh t be different from the original. Karan Conte MD--Burner Machine Operator ([facility] @ ) No known active problems Social History Tobacco Use Types Packs/Day Years Used Date Smoking Tobacco: Never Smokeless Tobacco: Never Tobacco Cessation:Counseling Given: Not Answered Alcohol Use Standard Drinks/Week Comments Yes 0 (1 standard drink = 0.6 oz pur e alcohol) occasional Sex and Gender Information Value Date Recorded Sex Assigned at Not on file Legal Sex Male 2:26 PM COGNOS REPORT DEVELOPER Gender Identity Not on file Sexual Orientation Not on file Last Filed Vital Signs Vital Sign Reading Time Taken Comments Blood Pressure 146/84 09/18/2022 7:57 AM CDT Pulse 75 09/18/2022 7:57 AM CDT Temperature 36.6 C (97.8 F) 05/31/2020 8:00 AM COGNOS REPORT DEVELOPER Respiratory Rate - - Oxygen Saturation 97% 09/18/2022 7:57 AM CDT Inhaled Oxygen Concentration - - Weight 107.5 kg (237 lb) 09/18/2022 7:57 AM CDT Height 175.3 cm (5' 9 ) 09/18/2022 7:57 AM CDT Body Mass Index 35 09/18/2022 7:57 AM CDT Plan of Treatment Upcoming Encounters Date Type Department Care Team (Late st Contact Info) Description 11/24/2024 11:30 AM CDT Office Visit [facility] [place] [address] [place] [phone] Karan Conte MD [address] [place] [address] [address] [place] [address] Health Maintenance Due Date Last Done Comments DTAP/TDAP/TD VACCINES (1 - Tdap) 1993 HEPATITIS B VACCINES (1 of 3 - 19+ 3-dose series) 06/1993 COLORECTAL SCREENING 12/20/2019 Colorectal Cancer Screening 12/20/2019 FIT-DNA Q 3 years 12/20/2019 FIT/FOBT Q 1 year 12/20/2019 Flex Sig/CT Colonography Q 5 years 12/20/2019 INFLUENZA VACCINE (#1) 2024 Insurance Care Teams Emergency Medical Technician Relationship Specialty Start Date End Date Rosamaria Diaz DO [address] [place] [id number] PCP - General Family Practice 06/24/20
== END 2024-10-18 11:20 | disposition home or self-care (01) ==
PROVIDERS: Emergency Provider Nurse Practitioner Family; PCP Family Medicine
DX: J06.9 Acute upper respiratory infection, unspecified (principal); J02.9 Acute pharyngitis, unspecified; K21.9 Gastro-esophageal reflux disease without esophagitis; E78.2 Mixed hyperlipidemia; R73.03 Prediabetes
CPT/HCPCS: 87081; 87880; 99213; G0463